=== PATIENT | male | born 1965 | race Two or more races ===

== ENCOUNTER 2019-07-11 11:07 | Inpatient (IN) | payer OTHER ==
[~2019-07-11] VITALS: Ht 162.6 cm; Wt 77.1 kg
[2019-08-07] MEDS ORDERED: ZESTRIL5 MG PO (10:13)
[2019-08-07] MEDS ORDERED: VERELAN180 MG PO (10:13)
[2019-08-07] MEDS ORDERED: CHLORTHALIDONE25 MG PO (10:13)
== END 2019-08-22 16:59 | disposition home or self-care (01) | DRG 330 ==
LOC: SURG 08-20 06:59 → O/R 08-20 06:59 → SURG 08-20 07:00
PROVIDERS: ADMIT Colon & Rectal Surgery
PROC: 07TB4ZZ Resection of Mesenteric Lymphatic, Percutaneous Endoscopic Approach (ICD-10-PCS; 2019-08-20)
PROC: 0DJD8ZZ Inspection of Lower Intestinal Tract, Via Natural or Artificial Opening Endoscopic (ICD-10-PCS; 2019-08-20)
PROC: 0DTN4ZZ Resection of Sigmoid Colon, Percutaneous Endoscopic Approach (ICD-10-PCS; principal; 2019-08-20 07:00)
DX: C20 Malignant neoplasm of rectum (principal); K92.1 Melena; C77.8 Secondary and unspecified malignant neoplasm of lymph nodes of multiple regions; K63.89 Other specified diseases of intestine; R59.0 Localized enlarged lymph nodes; I11.9 Hypertensive heart disease without heart failure

== ENCOUNTER 2020-08-14 07:34 | Day surgery (SDC) | payer OTHER ==
[~2020-08-14 07:34] MED LIST: CHLORTHALIDONE25 MG PO; VERELAN180 MG PO; ZESTRIL5 MG PO
== END 2020-08-14 13:25 | disposition home or self-care (01) ==
LOC: AMB-ENDOS 07:34
PROVIDERS: ATTEND Colon & Rectal Surgery
DX: K57.32 Diverticulitis of large intestine without perforation or abscess without bleeding (principal); K64.1 Second degree hemorrhoids; Z20.828 Contact with and (suspected) exposure to other viral communicable diseases

== ENCOUNTER 2021-10-08 10:23 | Day surgery (SDC) | payer OTHER | END 2021-10-08 16:10 | disposition home or self-care (01) | LOC: AMB-ENDOS 10:23 → CIR.AMB 15:30 → AMB-ENDOS 16:10 | PROVIDERS: ATTEND Colon & Rectal Surgery | DX: K62.89 Other specified diseases of anus and rectum (principal); K64.2 Third degree hemorrhoids; Z20.822 Contact with and (suspected) exposure to COVID-19 ==